=== PATIENT | male | born 1960 | race Caucasian/White ===

== ENCOUNTER → 2021-09-25 | Outpatient (CLI) | payer BC ==
[2021-09-27 17:11] LABS: CORONAVIRUS (COVID19) CSH-NRL Negative (Negative)
== END | disposition home or self-care (01) ==
LOC: LAB 12:44 → LAB SHORT 12:44
PROVIDERS: Chiropractor
DX: Z20.822 Contact with and (suspected) exposure to COVID-19 (principal)
CPT/HCPCS: U0003

== ENCOUNTER → 2022-01-08 | Outpatient (CLI) | payer BC ==
[2022-01-08 08:24] LABS: BASOPHILS ABSOLUTE AUTO 0.04 K/mm3 (0.00-0.23); BASOPHILS PERCENT AUTO 1 % (0-2); EOSINOPHILS ABSOLUTE AUTO 0.12 K/mm3 (0.00-0.68); EOSINOPHILS PERCENT AUTO 3 % (0-6); Hematocrit 40.6 % (37.0-53.0); IMMATURE GRAN ABSOLUTE AUTO 0.01 K/mm3 (0.00-0.10); IMMATURE GRAN PERCENT AUTO 0 % (0-1); LYMPHOCYTES ABSOLUTE AUTO 1.15 K/mm3 (0.84-5.20); LYMPHOCYTES PERCENT AUTO 27 % (21-46); MONOCYTES ABSOLUTE AUTO 0.39 K/mm3 (0.16-1.47); MONOCYTES PERCENT AUTO 9 % (4-13); Mean Corpuscular HGB 33.6 pg (26.0-34.0); Mean Corpuscular HGB Conc 34.5 g/dL (31.5-36.5); Mean Corpuscular Volume 97 fL (80-100); Mean Platelet Volume 9.6 fL (9.1-12.4); NEUTROPHILS ABSOLUTE AUTO 2.48 K/mm3 (1.96-9.15); NEUTROPHILS PERCENT AUTO 59 % (41-73); Platelet Count 246 K/mm3 (150-400); RDW Coefficient Variation 12.9 % (11.7-14.2); RDW Standard Deviation 46.3 fL (35.1-46.3); Red Blood Cell Count 4.17 M/mm3 (4.30-5.90); White Blood Cell Count 4.19 K/mm3 (4.00-11.30)
[2022-01-08 08:36] LABS: Alanine Aminotransfer (ALT/SGP 22 U/L (12-78); Albumin, Blood 4.2 g/dL (3.4-5.0); Albumin/Globulin Ratio 1.4 (0.8-1.8); Alk Phos 43 U/L (40-126); Anion Gap 8 mmol/L (6-16); Aspartate Aminotrans (AST/SGOT 15 U/L (12-37); Bilirubin, Total 0.7 mg/dL (0.1-1.0); Blood Urea Nitrogen 16 mg/dL (8-24); Bun/Creatinine Ratio 18.4 (12.0-20.0); CO2, Blood 26 mmol/L (21-32); Calcium, Blood 8.6 mg/dL (8.5-10.1); Chloride, Blood 106 mmol/L (98-108); Creatinine, Blood 0.87 mg/dL (0.60-1.20); Glomerular Filtration Rate >60 (60-); Glucose, Blood 108 mg/dL (70-99); Potassium, Blood 4.6 mmol/L (3.5-5.5); Sodium, Blood 140 mmol/L (136-145); Total Protein, Blood 7.2 g/dL (6.4-8.2)
== END | disposition home or self-care (01) ==
LOC: LAB SHORT 08:18 → LAB 08:18
PROVIDERS: Physician Assistant
DX: R10.32 Left lower quadrant pain (principal)
CPT/HCPCS: 80053; 85025

== ENCOUNTER 2022-02-25 13:52 | Day surgery (SDC) | payer BC ==
[~2022-02-25] VITALS: Ht 175.3 cm; Wt 84.6 kg
== END 2022-02-25 16:47 | disposition home or self-care (01) ==
LOC: ORSCSDS 13:52
PROVIDERS: Internal Medicine Gastroenterology
PROC: 0DBN8ZX Excision of Sigmoid Colon, Via Natural or Artificial Opening Endoscopic, Diagnostic (ICD-10-PCS; principal; 2022-02-25 15:00)
PROC: 0DBK8ZX Excision of Ascending Colon, Via Natural or Artificial Opening Endoscopic, Diagnostic (ICD-10-PCS; principal; 2022-02-25 15:00)
DX: R10.9 Unspecified abdominal pain (principal); R19.4 Change in bowel habit; Z86.010 Personal history of colon polyps; D12.2 Benign neoplasm of ascending colon; D12.5 Benign neoplasm of sigmoid colon; K57.30 Diverticulosis of large intestine without perforation or abscess without bleeding; Z87.891 Personal history of nicotine dependence; Z79.899 Other long term (current) drug therapy
CPT/HCPCS: 88305; J2704; J7120

== ENCOUNTER 2025-10-05 10:44 | Day surgery (SDC) | payer MEDICARE, BC ==
[~2025-10-05] VITALS: Ht 177.8 cm; Wt 89.4 kg
[~2025-10-05 10:44] MED LIST: Bupivacaine 0.5% W/EPI 1:200000 SDV 30 ML Vial ONE; Lidocaine HCl 2% 10 ML SDA ONE
[2025-10-05] MEDS ORDERED: CeFAZolin Sodium 2,000 MG VIAL ONE (11:03)
[2025-10-05] MEDS ORDERED: ASPI81CH PO (11:21)
[2025-10-05] MEDS ORDERED: MULTIPLE VITAM1 EACH PO (11:21)
[2025-10-05] MEDS ORDERED: IBUP800 PO (11:31)
[2025-10-05] MEDS ORDERED: TAMS.4ER PO (11:32)
[2025-10-05] MEDS ORDERED: TADA10TA (11:32)
[2025-10-05] MEDS ORDERED: FentaNYL Citrate 50 MCG/ML 2 ML Injection ONE (11:50)
[2025-10-05] MEDS ORDERED: Midazolam HCl 1MG / ML 2ML Vial ONE (11:50)
[2025-10-05] MEDS ORDERED: Phenylephrine HCl 100 MCG/ML-NS 10MLSYR (1MG/10ML) ONE (11:51)
[2025-10-05] MEDS ORDERED: Ondansetron HCl 2 MG / ML 2ML Vial ONE (12:28)
[2025-10-05] MEDS ORDERED: Dexamethasone Sod Phos 10 MG/ML 1ML VIAL ONE (12:28)
[2025-10-05 13:52] VITALS: BP 110/78
== END 2025-10-05 14:04 | disposition home or self-care (01) ==
LOC: ORSCSDS 10:44
PROVIDERS: Podiatrist Foot & Ankle Surgery
PROC: 01BG0ZZ Excision of Tibial Nerve, Open Approach (ICD-10-PCS; principal; 2025-10-05 12:00)
PROC: 0SGQ04Z Fusion of Left Toe Phalangeal Joint with Internal Fixation Device, Open Approach (ICD-10-PCS; principal; 2025-10-05 12:00)
DX: G57.62 Lesion of plantar nerve, left lower limb (principal); M20.42 Other hammer toe(s) (acquired), left foot; E78.5 Hyperlipidemia, unspecified; Z79.899 Other long term (current) drug therapy
CPT/HCPCS: 88305; J0690; J1100; J2003; J2250; J2371; J2405; J2704; J3010; J7120